=== PATIENT | female | born 1990 | race Caucasian/White ===

== ENCOUNTER 2018-11-27 09:07 | Emergency (ER) | payer OTHER ==
[2018-11-27] MEDS ORDERED: NS 1,000 ML IV ONE (09:50)
[2018-11-27] MEDS ORDERED: ONDANSETRON 4 MG/2 ML VIAL IVP ONE (09:50)
--- NOTE | 2018-11-27 09:50 | EDPHY ---
H & P Stated Complaint: heavy vaginal bleeding cramps/pt is on xarelto Time Seen by Provider: 11/27/18 09:42 HPI/ROS: HPI: This is a 28-year-old female who presents with Chief Complaint: heavy vaginal bleeding cramps/pt is on xarelto Location: pelvic Quality: Bleeding Duration: 7 days Signs and Symptoms: no fever, no nausea, no vomiting, no hematemesis, no blood in stool, no abdominal bloating, no diarrhea, no back pain, no urinary symptoms , + vaginal bleeding, no vaginal discharge no indigestion, no chest pain, no shortness of breath Timing: Acute, worsening Severity: Moderate Context: Patient presents with day 7 of her menses accompanied by originally changing super tampon every 1-2 hours and now changing regular tampons every 2 hr accompanied by lower abdominal bilateral pain that is described as cramping and sharp in nature. This pain started within the last 2 days. Patient was recently in [facility] visiting her boyfriend did have sexual intercourse but denies any concern for vaginal trauma/STDs. Patient reports that she has a copper IUD and this was replaced last year. OBGYN is in [place]. Patient takes for Xarelto for clotting disorder. History of ovarian cyst. Shorts that her INR usually runs between 2 and 3. She does follow up with Gastroenterology related to her liver disease which her liver enzymes are always mildly elevated. Modifying Factors: Taking tramadol with mild transient pain relief. Patient denies any dizziness, headache, shortness of breath, weakness. Comment: ROS: A comprehensive 10 system review of systems is otherwise negative aside from elements mentioned in the history of present illness. 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 Family history noncontributory. CONSTITUTIONAL: Tearful, mild distress adult white female, nontoxic in appearance, awake and alert HEENT: Atraumatic and normocephalic, PERRL, EOMI. Nares patent; no rhinorrhea; no nasal mucosal edema. Tympanic membranes clear. Oropharynx clear, no exudate and moist pink mucosa. Airway patent. No lymphadenopathy. No meningismus. Cardiovascular: Normal S1/S2, regular rate, regular rhythm, without murmur rub or gallop. PULMONARY/CHEST: Symmetrical and nontender. Clear to auscultation bilaterally. Good air movement. No accessory muscle usage. ABDOMEN: Soft, nondistended, nontender, no rebound, no guarding, no peritoneal signs, no masses or organomegaly. No CVAT. PELVIC: Politely refused EXTREMITIES: 2/2 pulses, strength 5/5, no deformities, no clubbing, no cyanosis or edema. NEUROLOGICAL: no focal neuro deficits. GCS 15. SKIN: Warm and dry, no erythema. no rash. Good capillary refill. 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 - Social History Smoking Status: Never smoked Constitutional: Initial Vital Signs Temperature (C) 36.7 C 11/27/18 09:17 Heart Rate 67 11/27/18 09:17 Respiratory Rate 18 11/27/18 09:17 Blood Pressure 129/74 H 11/27/18 09:17 O2 Sat (%) 97 11/27/18 09:17 O2 Delivery Mode Room Air Allergies/Adverse Reactions: acetaminophen [From Tylenol] Allergy (Unknown, Verified 11/27/18 09:15) ibuprofen [From Motrin IB] Allergy (Unknown, Verified 11/27/18 09:15) Home Medications: Medication Instructions Recorded Aspirin EC [Aspirin EC 81 mg] 81 mg PO 02/07/11 SPIRONOLACTONE 50 mg PO BID 02/07/11 Lactulose [Cephulac 20 gm/30 ml 10 gm PO 08/23/11 oral soln (*)] Tramadol 01/12/13 Hydroxyurea 11/27/18 Xarelto 11/27/18 Medical Decision Making - Diagnostics Imaging Results: Imaging Impressions Pelvic/Renal Ultrasound 11/27/18 09:50 Impression: 1. Normal ultrasound pelvis. 2. IUD in good position. 3. Involuted follicular cyst suspected on the left with left-sided free fluid. Findings discussed with Destinee Styles PAC at 11:13 hour, 11/27/2018. ED Course/Re-evaluation: Vital signs reviewed and no signs of tachycardia, hypoxia. IV access, laboratory studies including clotting factors, pelvic ultrasound ordered Patient has no urinary symptoms and I doubt UTI or pyelonephritis Given 1 L normal saline, IV morphine 4 mg and IV Zofran 4 mg 1025: Labs reviewed. No signs of leukocytosis/anemia/platelet dysfunction/DHARMESH/ electrolyte imbalance. Mildly elevated LFTs noted which is consistent with history of liver disease. INR 2.39 1120: Called by radiologist who advised that pelvic ultrasound is normal. IUD in place. Involuted follicular cyst suspected on the left with left-sided free fluid. Reassessed patient who has politely declined any pain medications or antiemetics. Reviewed laboratory studies at bedside and patient reports that her INR and liver enzymes are at or near baseline. INR is 2.39 and is post be between 2 and 3. Patient reports that she has a prescription for tramadol at home and does not need another one. 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 This patient was seen under the supervision of my secondary supervising physician. I evaluated care for this patient with attending. Discussed this patient with Dr. Adkins. Differential Diagnosis: Abdominal pain in a female including but not limited to ovarian cyst, pelvic inflammatory disease, ovarian torsion, urinary tract infection, and appendicitis. - Data Points Laboratory Results: Laboratory Results 11/27/18 09:50 11/27/18 09:50 11/27/18 11/27/18 11/27/18 09:56 09:50 09:50 WBC RBC Hgb POC Hgb 16.0 gm/dL gm/dL (12.6-16.3) Hct POC Hct 47 % % (38-47) MCV MCH MCHC RDW Plt Count MPV Neut % (Auto) Lymph % (Auto) [place] % (Auto) Eos % (Auto) Baso % (Auto) Nucleat RBC Rel Count Absolute Neuts (auto) Absolute Lymphs (auto) Absolute Monos (auto) Absolute Eos (auto) Absolute Basos (auto) Absolute Nucleated RBC Immature Gran % Immature Gran # PT 26.1 SEC H SEC (12.0-15.0) INR 2.39 H (0.83-1.16) APTT 57.2 SEC H SEC (23.0-38.0) POC Sodium 141 mEq/L mEq/L (135-145) Sodium POC Potassium 4.1 mEq/L mEq/L (3.3-5.0) Potassium POC Chloride 108 mEq/L mEq/L (97-110) Chloride Carbon Dioxide Anion Gap POC BUN 9 mg/dL mg/dL (7-23) BUN Creatinine POC Creatinine 0.9 mg/dL mg/dL (0.6-1.0) Estimated GFR Glucose POC Glucose 84 mg/dL mg/dL (70-100) Calcium Total Bilirubin Conjugated Bilirubin Unconjugated Bilirubin AST ALT Alkaline Phosphatase Total Protein Albumin Beta HCG, Qual NEGATIVE 11/27/18 11/27/18 09:50 09:50 WBC 7.64 10^3/uL 10^3/uL (3.80-9.50) RBC 4.81 10^6/uL 10^6/uL (4.18-5.33) Hgb 14.9 g/dL g/dL (12.6-16.3) POC Hgb Hct 44.5 % % (38.0-47.0) POC Hct MCV 92.5 fL fL (81.5-99.8) MCH 31.0 pg pg (27.9-34.1) MCHC 33.5 g/dL g/dL (32.4-36.7) RDW 13.3 % % (11.5-15.2) Plt Count 358 10^3/uL 10^3/uL (150-400) MPV 10.7 fL fL (8.7-11.7) Neut % (Auto) 64.9 % % (39.3-74.2) Lymph % (Auto) 22.6 % % (15.0-45.0) [place] % (Auto) 6.0 % % (4.5-13.0) Eos % (Auto) 5.2 % % (0.6-7.6) Baso % (Auto) 1.0 % % (0.3-1.7) Nucleat RBC Rel Count 0.0 % % (0.0-0.2) Absolute Neuts (auto) 4.95 10^3/uL 10^3/uL (1.70-6.50) Absolute Lymphs (auto) 1.73 10^3/uL 10^3/uL (1.00-3.00) Absolute Monos (auto) 0.46 10^3/uL 10^3/uL (0.30-0.80) Absolute Eos (auto) 0.40 10^3/uL 10^3/uL (0.03-0.40) Absolute Basos (auto) 0.08 10^3/uL 10^3/uL (0.02-0.10) Absolute Nucleated RBC 0.00 10^3/uL 10^3/uL (0-0.01) Immature Gran % 0.3 % % (0.0-1.1) Immature Gran # 0.02 10^3/uL 10^3/uL (0.00-0.10) PT INR APTT POC Sodium Sodium 143 mEq/L mEq/L (135-145) POC Potassium Potassium 4.3 mEq/L mEq/L (3.5-5.2) POC Chloride Chloride 110 mEq/L mEq/L (97-110) Carbon Dioxide 19 mEq/l L mEq/l (22-31) Anion Gap 14 mEq/L mEq/L (6-14) POC BUN BUN 11 mg/dL mg/dL (7-23) Creatinine 0.8 mg/dL mg/dL (0.6-1.0) POC Creatinine Estimated GFR > 60 Glucose 82 mg/dL mg/dL (70-100) POC Glucose Calcium 9.3 mg/dL mg/dL (8.5-10.4) Total Bilirubin 2.2 mg/dL H mg/dL (0.1-1.4) Conjugated Bilirubin 0.7 mg/dL H mg/dL (0.0-0.5) Unconjugated Bilirubin 1.5 mg/dL H mg/dL (0.0-1.1) AST 50 IU/L H IU/L (14-46) ALT 56 IU/L H IU/L (9-52) Alkaline Phosphatase 272 IU/L H IU/L (38-126) Total Protein 7.3 g/dL g/dL (6.3-8.2) Albumin 4.3 g/dL g/dL (3.5-5.0) Beta HCG, Qual Medications Given: Discontinued Medications Sodium Chloride (Ns) 1,000 mls @ 0 mls/hr IV ONCE ONE; Wide Open PRN Reason: Protocol Stop: 11/27/18 09:51 Last Admin: 11/27/18 10:07 Dose: 1,000 mls Ondansetron HCl (Zofran) 4 mg IVP EDNOW ONE Stop: 11/27/18 09:51 Last Admin: 11/27/18 10:07 Dose: 4 mg Point of Care Test Results: Chemistry 11/27/18 09:56 POC Sodium 141 mEq/L mEq/L (135-145) POC Potassium 4.1 mEq/L mEq/L (3.3-5.0) POC Chloride 108 mEq/L mEq/L (97-110) POC BUN 9 mg/dL mg/dL (7-23) POC Creatinine 0.9 mg/dL mg/dL (0.6-1.0) POC Glucose 84 mg/dL mg/dL (70-100) ISTAT H&H 11/27/18 09:56 POC Hgb 16.0 gm/dL gm/dL (12.6-16.3) POC Hct 47 % % (38-47) Departure - Departure Disposition: Home, Routine, Self-Care Clinical Impression: Dysmenorrhea, Chronic anticoagulation Menorrhagia Qualifiers: Menorrahagia type: with regular cycle Qualified Code(s): N92.0 - Excessive and frequent menstruation with regular cycle Condition: Good Instructions: Dysmenorrhea (ED), Menorrhagia (ED) Additional Instructions: Today your INR is 2.39. Follow-up with Gastroenterology for repeat liver enzymes in 1 week for mildly elevated liver enzymes. Follow up with OBGYN in [place] regarding dysmenorrhea and menorrhagia. Continue to use Ultram 50-100 mg every 6 hr as needed for severe/breakthrough pain. Return at once for any worsening symptoms or concerns. Referrals: PCP Not In,Dictionary [Medical Doctor] - As per Instructions (Please follow up with OBGYN and journeyman pipefitter. )
[2018-11-27 10:16] LABS: PLATELET COUNT 358 10^3/uL (150-400)
[2018-11-27 10:31] LABS: INR 2.39 (0.83-1.16); PROTIME(PATIENT) 26.1 SEC (12.0-15.0)
[2018-11-27 11:37] VITALS: BP 136/79
== END 2018-11-27 11:36 | disposition home or self-care (01) ==
DX: N94.6 Dysmenorrhea, unspecified (principal); N92.0 Excessive and frequent menstruation with regular cycle; E86.9 Volume depletion, unspecified
CPT/HCPCS: 82435-PO; 82565-PO; 82947-PO; 84132-PO; 84295-PO; 84520-PO; 85014-ER; 96374; J2270; J2405